=== PATIENT | male | born 1960 | race Two or more races ===

== ENCOUNTER 2024-11-28 10:46 | Emergency (ER) | payer MEDICAID, SELFPAY ==
[2024-11-28 10:53] VITALS: RESP 12; O2SAT 99; BMI 28.1
[2024-11-28 11:05] VITALS: BP 176/107; PULSE 63; RESP 18; TEMP 36.7; O2SAT 97
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
--- NOTE | 2024-11-28 13:53 | PC.CC ---
WOMEN'S HEALTH CARE NURSE PRACTITIONERCamila was consulted by kiosk sales representative Cyn for transportation for patient back to [facility]. [facility] arranged transportation for patient back to [facility] with [facility] reservation number [id number].
--- NOTE | 2024-11-28 18:14 | PC.NURSE ---
Report given to Sri at [facility], eta given, all questions answered.
== END 2024-11-28 18:16 | disposition home or self-care (01) ==
PROVIDERS: Emergency Provider Emergency Medicine
DX: T83.031A Leakage of indwelling urethral catheter, initial encounter (principal); Y84.6 Urinary catheterization as the cause of abnormal reaction of the patient, or of later complication, without mention of misadventure at the time of the procedure
CPT/HCPCS: 81001; 99282